=== PATIENT | female | born 1965 | race Caucasian/White ===

== ENCOUNTER 2021-05-18 13:05 | Outpatient (CLI) | payer OTHER | END 2021-05-18 13:24 | disposition home or self-care (01) | LOC: SONOGRAMA 13:05 | PROVIDERS: ATTEND Physical Medicine & Rehabilitation Hospice and Palliative Medicine | DX: M25.511 Pain in right shoulder (principal); M25.512 Pain in left shoulder; M75.40 Impingement syndrome of unspecified shoulder; M75.42 Impingement syndrome of left shoulder ==